=== PATIENT | male | born 1975 | race Caucasian/White ===

== ENCOUNTER 2019-06-02 16:28 | Emergency (ER) | payer OTHER ==
[2019-06-02 16:38] VITALS: BP 130/93; PULSE 92; RESP 18; TEMP 97.7
[2019-06-02] MEDS ORDERED: DIPH,PERTUS(ACELL)TETVAC-LF 0.5 ML VIAL IM ONE (16:39)
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
== END 2019-06-02 17:45 | disposition home or self-care (01) ==
LOC: EC 16:28
DX: S10.91XA Abrasion of unspecified part of neck, initial encounter (principal); S40.822A Blister (nonthermal) of left upper arm, initial encounter; Q27.31 Arteriovenous malformation of vessel of upper limb; E07.9 Disorder of thyroid, unspecified; G40.909 Epilepsy, unspecified, not intractable, without status epilepticus; F17.200 Nicotine dependence, unspecified, uncomplicated; Z23 Encounter for immunization; Z98.890 Other specified postprocedural states; Z79.890 Hormone replacement therapy; Z79.899 Other long term (current) drug therapy; Z88.6 Allergy status to analgesic agent; Y04.0XXA Assault by unarmed brawl or fight, initial encounter; Y92.89 Other specified places as the place of occurrence of the external cause
CPT/HCPCS: 90471; 90715; 99284

== ENCOUNTER 2021-01-26 17:47 | Emergency (ER) | payer OTHER ==
--- NOTE | 2021-01-26 20:21 | ED ---
Upper Extremity HPI - General Chief Complaint: Extremity Injury, Upper Stated Complaint: hand swelling Time Seen by Provider: 01/26/21 18:33 Source: patient, family Mode of arrival: ambulatory Limitations: no limitations - History of Present Illness Initial Comments: 45yo male with history of congenital left arm cavernous hemangioma, developmental delays with no documented nor stated specific disorder presenting for cc of left arm increased swelling. Patient and patient skin care technician (who is new with limited health information) states every time patient put his hand down it swells, they state this normally happens but seems increased from baseline.. Patient denies pain he denies warmth redness fever chills general malaise. They deny any other associated symptoms. Htey state when the arm is raised the swelling goes down. Patient was seen at two other facilities one placed patient on eliquis, and the other recommends NSAIDS and compression. Patient has an appointment at [facility] within the next two months with a plastics team for this complaint. Remaining ROS (-). - Related Data Home Medications Medication Instructions Recorded Confirmed ALPRAZolam [Xanax] 1 mg PO Q8HR PRN 10/17/16 10/19/16 FLUoxetine HCL [PROzac] 20 mg PO DAILY 10/17/16 10/19/16 Levothyroxine Sodium [Synthroid] 50 mcg PO DAILY 10/17/16 10/19/16 [place] Carbonate ER [Lithobid] 450 mg PO HS 10/17/16 10/19/16 OLANZapine [ZyPREXA Zydis] 30 mg PO HS 10/17/16 10/19/16 hydrOXYzine pamoate [Vistaril] 50 mg PO TID 10/17/16 10/19/16 lamoTRIgine [LaMICtal] 100 mg PO QAM 10/17/16 10/19/16 lamoTRIgine [LaMICtal] 300 mg PO HS 10/17/16 10/19/16 levETIRAcetam [Keppra] 500 mg PO Q12HR 10/17/16 10/19/16 Allergies Allergy/AdvReac Type Severity Reaction Status Date / Time aspirin Allergy Unknown Verified 01/26/21 17:54 NSAIDS (Non-Steroidal Allergy Unknown Verified 06/02/19 16:38 Anti-Inflamma Review of Systems ROS Statement: Those systems with pertinent positive or pertinent negative responses have been documented in the HPI. ROS Other: All systems not noted in ROS Statement are negative. 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;Complex seizure disorder with tremors; poor upper body muscle tone;emphysema History of Any Multi-Drug Resistant Organisms: None Reported Additional Past Surgical History / Comment(s): Colonoscopy; teeth extraction Past Anesthesia/Blood Transfusion Reactions: No Reported Reaction Smoking Status: Current every day smoker Past Alcohol Use History: None Reported Past Drug Use History: None Reported - Past Family History Mother Family Medical History: Unable to Obtain General Exam - General Exam Comments Initial Comments: General: The patient is awake and alert, in no distress Eye: +3 mm pupils are equal, round and reactive to light, extra-ocular movements are intact. No nystagmus. There is normal conjunctiva bilaterally. No signs of icterus. Ears, nose, mouth and throat: There are moist mucous membranes and no oral lesions. Neck: The neck is supple, there is no tenderness or JVD. Cardiovascular: There is a regular rate and rhythm. No murmur, rub or gallop is appreciated. Respiratory: Lungs are clear to auscultation, respirations are non-labored, breath sounds are equal. No wheezes, stridor, rales, or rhonchi. Gastrointestinal: Soft, non-distended, non-tender abdomen without masses or organomegaly noted. There is no rebound or guarding present. No CVA tenderness. Musculoskeletal: Normal ROM, no tenderness. Strength 5/5. Sensation intact. Radial and DP pulses equal bilaterally 2+. Neurological: A&O x 3. CN II-XII intact grossly,Coordination appears grossly intact. Speech is normal. Skin: Skin is warm and dry and no rashes or lesions are noted. dilated large veins on the left arm, large overall enlarged (appear typical of cavernous hemangioma). No redness, does not appear severely edematous, skin soft, normal pulses. Psychiatric: Cooperative, pleasant Limitations: no limitations Course Vital Signs 01/26/21 01/27/21 17:48 00:39 Temperature 98.4 F 98.1 F Pulse Rate 80 82 Respiratory 18 16 Rate Blood Pressure 133/83 136/78 O2 Sat by Pulse 97 98 Oximetry Medical Decision Making - Medical Decision Making 45yo male presenting for cc of hand swelling. hx cavernous hemangioma. Patient exam correlated with PMH. dependent swelling. sttates improved at this time because he has been elevating it. Denies pain. States only red when hand down, no redness at this time. Consulted Dr. jordan who states he is not familar with the disease. COnsulted Jennifer Whitley who states it sounds benign but to contact plastics at [facility]. I consulted trial consultant plastics team at [facility]. He states he will attempt to move up appointment and thinks overall given hx and PE that this appears benign. recommend outpatient f/u. patient case discussed with Dr. Hernandez who evaluated patient and is in agreement with trial consultant and pt discharged appearing well. Disposition Clinical Impression: Left arm swelling, Venous insufficiency Disposition: HOME SELF-CARE Condition: Good Additional Instructions: Please use medication as discussed. Please follow-up with family doctor in the next 2 days, [facility] will call you to move up plastics appointment, Return for pain, redness, warmth, fevers, chest pain, shortness of breath. Please return to emergency room if the symptoms increase or worsen or for any other concerns. Is patient prescribed a controlled substance at d/c from ED?: No Referrals: Nonstaff,Physician [Primary Care Provider] - 1-2 days Time of Disposition: 20:20
[2021-01-27 00:40] VITALS: BP 136/78; PULSE 82; RESP 16; TEMP 98.1
== END 2021-01-26 20:45 | disposition home or self-care (01) ==
LOC: EEVIPCON 17:47 → EC 17:47
DX: I87.2 Venous insufficiency (chronic) (peripheral) (principal); F17.200 Nicotine dependence, unspecified, uncomplicated; J43.9 Emphysema, unspecified; Z79.01 Long term (current) use of anticoagulants; Z79.899 Other long term (current) drug therapy
CPT/HCPCS: 99283

== ENCOUNTER 2021-05-18 07:36 | Day surgery (SDC) | payer OTHER ==
[2021-05-18 07:34] VITALS: RESP 16; TEMP 98.4
[2021-05-18] MEDS ORDERED: IV FLUID CONTINUATION 1,000 ML IV ONE (07:44)
[2021-05-18] MEDS ORDERED: LACTATED RINGERS 1,000 ML IV ONE (07:44)
[2021-05-18] MEDS ORDERED: fentaNYL (PF) 50 MCG/ML 2 ML AMP ONE (08:17)
[2021-05-18] MEDS ORDERED: LIDOCAINE 1% INJ 10MG/ML (20 ML MDV) ONE (08:17)
[2021-05-18] MEDS ORDERED: GLYCOPYRROLATE 0.2 MG/ML 2 ML VIAL ONE (08:17)
[2021-05-18] MEDS ORDERED: PROPOFOL 10 MG/ML 20 ML VIAL IV ONE (08:17)
[2021-05-18] MEDS ORDERED: MIDAZOLAM 2 MG/2 ML VIAL ONE (08:17)
--- NOTE | 2021-05-18 08:58 | P.PCN ---
Date of Procedure: 05/18/21 Description of Procedure: BRIEF HISTORY: Patient is a 46-year-old male presenting for rectal bleed and hemorrhoids were outpatient colonoscopy. Previously he had colonoscopy in 10/05 with findings of distal rectal polyp, internal hemorrhoids and a redundant colon with poor prep. PROCEDURE PERFORMED: Colonoscopy with polypectomy. PREOPERATIVE DIAGNOSIS: Rectal bleed, hemorrhoids, last colonoscopy 2015. ESTIMATED BLOOD LOSS: Minimal. IV sedation per Anesthesia. PROCEDURE: After informed consent was obtained, the patient, was brought into the endoscopy unit. IV sedation was administered by Anesthesia under continuous monitoring. Digital rectal examination was normal. Initially the Olympus CF-190 flexible video colonoscope was then inserted in the rectum, gradually advanced into the cecum without any difficulty. Careful examination was performed as the scope was gradually being withdrawn. Ileocecal valve and the appendiceal orifice were visualized and appeared normal. Prep was excellent. Mucosa of the cecum, ascending colon, transverse colon, descending colon, sigmoid colon, and rectum appeared normal, but was somewhat redundant. A diminutive 2 mm transverse colon polyp was removed with cold forcep polypectomy.. Retroflexion was performed in the rectum and no lesions were seen, and low-grade internal hemorrhoids were noted. The patient tolerated the procedure well. IMPRESSION: Diminutive transverse colon polyp removed with cold forcep polypectomy. Internal hemorrhoids. Redundant colon. RECOMMENDATIONS: Findings of this examination were discussed with the patient and his caregiver. Okay to resume diet. Okay to resume medications. Await pathology from polypectomy. Recommend repeat colonoscopy in 7 years pending pathology from polypectomy. Continue local hemorrhoidal care.
[2021-05-18 09:09] VITALS: BP 138/85; PULSE 88
== END 2021-05-18 09:51 ==
LOC: ORWHC2ENDO 07:36
PROVIDERS: ATTEND Internal Medicine
DX: K62.5 Hemorrhage of anus and rectum (principal); K64.8 Other hemorrhoids; D12.3 Benign neoplasm of transverse colon; J44.9 Chronic obstructive pulmonary disease, unspecified; F31.9 Bipolar disorder, unspecified; F20.9 Schizophrenia, unspecified; F41.9 Anxiety disorder, unspecified; R62.50 Unspecified lack of expected normal physiological development in childhood; Z88.6 Allergy status to analgesic agent; E07.9 Disorder of thyroid, unspecified; Z79.899 Other long term (current) drug therapy
CPT/HCPCS: 88305; 45380; J2250; J2001; J3010; J2704

== ENCOUNTER 2023-10-20 08:09 | Day surgery (SDC) | payer OTHER ==
--- NOTE | 2023-10-20 05:27 | P.GSHP ---
History of Present Illness H&P Date: 10/20/23 CHIEF COMPLAINT: Cholecystitis HISTORY OF PRESENT ILLNESS: The patient is a 48-year-old male who presents with history of epigastric including right upper quadrant abdominal pain. He underwent diagnostic studies for the gallbladder and gallstones. Separately his clinical picture was consistent with cholecystitis. Now he presents for surgical intervention. PAST MEDICAL HISTORY: Please see list PAST SURGICAL HISTORY: Please see list MEDICATIONS: Please see list ALLERGIES: Denies. SOCIAL HISTORY: No illicit drug use or recent tobacco use FAMILY HISTORY: Pertinent for gallbladder disease REVIEW OF ORGAN SYSTEMS: CONSTITUTIONAL: No reports of fevers or chills. HEENT: Denies any troubles with the vision or hearing. ENDOCRINE: No reports of hypothyroidism. No diabetes. RESPIRATORY: No recent pneumonias. CARDIOVASCULAR: Denies chest pain or palpitations. History of cardiac disease GI: No blood in stools or constipation. MUSCULOSKELETAL: Has occasional joint pain including back pain. NEURO: No seizure disorders or headaches. No recent stroke. PSYCH: No depression or suicidal ideation. Has cognitive delay HEMATOLOGIC: Past DVTs or pulmonary emboli. PHYSICAL EXAM: VITAL SIGNS: Afebrile vital signs stable GENERAL: Well-developed pleasant male in no acute distress. HEENT: No scleral icterus. Extraocular movements grossly intact. Moist buccal mucosa. NECK: Supple without lymphadenopathy. CHEST: Unlabored respirations. Equal bilateral excursions. CARDIOVASCULAR: Regular rate regular rhythm rhythm. Distal 2+ pulses. ABDOMEN: Soft, nondistended. MUSCULOSKELETAL: No clubbing, cyanosis, or edema. NEURO : No focal or lateralizing signs. Cranial nerves II-12 within normal limits. PSYCH: Alert and oriented to person, place and time. SKIN: Well perfused. Good skin turgor. ASSESSMENT: 1. Epigastric and right upper quadrant abdominal pain 2. Chronic cholecystitis PLAN: 1. Will need a robotic cholecystectomy possible open. Benefits and risks were described. 2. Heparin for DVT prophylaxis 5000 units. 3. Antibiotic prophylaxis. Past Medical History Past Medical History: Asthma, GI Bleed, Thyroid Disorder Additional Past Medical History / Comment(s): Mentally Challenged; Large cavernous hemangioma from neck, left shoulder, chest and arm.; seizure disorder (unknown date of last seizure), hx of cavernous hemangioma growth in bowel that was not removable, (2005), 2nd growth (2016)., scratches himself., rectal bleeding. caregiver states speech not clear but able to understand him, speaks in sentences, cooperative, ambulates and cares for himself. , pt has legal guardian from the court -Estefania Schaefer # [phone]. History of Any Multi-Drug Resistant Organisms: None Reported Additional Past Surgical History / Comment(s): Colonoscopy; teeth extraction, ? surgery for hemangiomas in abdomen, Past Anesthesia/Blood Transfusion Reactions: Unable to Obtain Smoking Status: Current every day smoker - Past Family History Mother Family Medical History: Unable to Obtain Medications and Allergies Home Medications Medication Instructions Recorded Confirmed Type Benzonatate [Tessalon Perles] 100 mg PO TID PRN 02/23/22 10/18/23 History Acetaminophen-Codeine 300-30mg 1 tab PO BID PRN #6 tab 03/03/22 10/18/23 Rx [Tylenol w/codeine #3] Albuterol Nebulized [Ventolin 2.5 mg INHALATION RT-Q4H PRN 30 03/03/22 10/18/23 Rx Nebulized] Days #90 each Albuterol Sulfate [Proair Hfa] 2 puff INHALATION RT-Q6H PRN 30 03/03/22 10/18/23 Rx Days #1 each Cyanocobalamin [Vitamin B-12] 500 mcg PO DAILY #30 tab 03/03/22 10/18/23 Rx FLUoxetine HCL [PROzac] 10 mg PO DAILY@0700 #30 cap 03/03/22 10/18/23 Rx Fenofibrate Nanocrystallized 145 mg PO DAILY@0700 #30 tab 03/03/22 10/18/23 Rx [Fenofibrate] Folic Acid 1 mg PO DAILY #30 tab 03/03/22 10/18/23 Rx LORazepam [Ativan] 1 mg PO BID PRN #4 tab 03/03/22 10/18/23 Rx Levothyroxine Sodium [Synthroid] 50 mcg PO DAILY@0700 #30 tab 03/03/22 10/18/23 Rx OLANZapine ODT [ZyPREXA Zydis] 20 mg PO HS@2100 #60 tab 03/03/22 10/18/23 Rx Tamsulosin [Flomax] 0.4 mg PO PC-BRKFST 30 Days #30 cap 03/03/22 10/18/23 Rx Thiamine [Vitamin B-1] 100 mg PO DAILY #30 tab 03/03/22 10/18/23 Rx hydrOXYzine HCL [Atarax] 50 mg PO TID PRN 30 Days #90 tab 03/03/22 10/18/23 Rx lamoTRIgine [LaMICtal] 75 mg PO HS@2100 30 Days #90 tab 03/03/22 10/18/23 Rx lamoTRIgine [LaMICtal] 100 mg PO DAILY@0700 #30 tab 03/03/22 10/18/23 Rx lamoTRIgine [LaMICtal] 200 mg PO HS@2100 30 Days #60 tab 03/03/22 10/18/23 Rx levETIRAcetam [Keppra] 500 mg PO BID@0700,2100 #60 tab 03/03/22 10/18/23 Rx traZODone HCL [Desyrel] 50 mg PO HS PRN #5 tab 03/03/22 10/18/23 Rx Cetirizine HCl 10 mg PO DAILY 10/18/23 10/18/23 History Polygycol(Unk) 1 dose PO DIRECTED 10/18/23 10/18/23 History Allergies Allergy/AdvReac Type Severity Reaction Status Date / Time aspirin Allergy Unknown Verified 10/18/23 08:59
[~2023-10-20 08:09] MED LIST: ACETAMINOPHEN TAB 500 MG TAB PO PRN; DEXAMETHASONE SOD PHOSPHATE 4 MG/ML 1 ML VIAL IV ONE; HEPARIN SODIUM,PORCINE/PF 5,000 UNIT/0.5 ML SYRINGE SQ PRN; HYDROmorphone 0.5 MG/0.5 ML SYRINGE IVP PRN; INDOCYANINE GREEN 25 MG VIAL IV STA; LACTATED RINGERS 1,000 ML IV SCH; LIDOCAINE 1% (10MG/ML) FOR IV START INTRADERMA PRN; MIDAZOLAM 2 MG/2 ML VIAL IV PRN; ONDANSETRON 4 MG/2 ML VIAL IVP ONE; ONDANSETRON 4 MG/2 ML VIAL IVP PRN
[2023-10-20 09:01] LABS: Basophils # (A) 0.1 k/uL (0-0.2); Basophils % (A) 1 %; Eosinophils # (A) 0.5 k/uL (0-0.7); Eosinophils % (A) 6 %; HCT 43.1 % (39.0-53.0); HGB 14.3 gm/dL (13.0-17.5); Lymphocytes # (A) 2.4 k/uL (1.0-4.8); Lymphocytes % (A) 29 %; MCH 32.7 pg (25.0-35.0); MCHC 33.2 g/dL (31.0-37.0); MCV 98.6 fL (80.0-100.0); Mean Platelet Volume 6.8; Monocytes # (A) 0.5 k/uL (0-1.0); Monocytes % (A) 6 %; Neutrophils # (A) 4.7 k/uL (1.3-7.7); Neutrophils % (A) 56 %; Platelet Count 309 k/uL (150-450); RBC 4.37 m/uL (4.30-5.90); RDW 13.7 % (11.5-15.5); WBC 8.4 k/uL (3.8-10.6)
[2023-10-20] MEDS ORDERED: GLYCOPYRROLATE 0.2 MG/ML 2 ML VIAL ONE (09:08)
[2023-10-20] MEDS ORDERED: fentaNYL (PF) 50 MCG/ML 2 ML AMP ONE (09:08)
[2023-10-20] MEDS ORDERED: PROPOFOL 10 MG/ML 20 ML VIAL IV ONE (09:08)
[2023-10-20] MEDS ORDERED: PHENYLEPHRINE-0.9% NACL SYG 1,000 MCG/10 ML SYRINGE ONE (09:08)
[2023-10-20] MEDS ORDERED: SUGAMMADEX SODIUM 200 MG/2 ML SDV IV ONE (09:08)
[2023-10-20] MEDS ORDERED: ROCURONIUM 10 MG/ML (5 ML VIAL) IV ONE (09:08)
[2023-10-20] MEDS ORDERED: SUCCINYLCHOLINE CHLORIDE 200 MG/10 ML VIAL IV ONE (09:08)
[2023-10-20] MEDS ORDERED: LIDOCAINE 1% INJ 10MG/ML (20 ML MDV) ONE (09:08)
[2023-10-20] MEDS ORDERED: MIDAZOLAM 2 MG/2 ML VIAL ONE (09:08)
[2023-10-20] MEDS ORDERED: LACTATED RINGERS 1,000 ML IV ONE (09:15)
[2023-10-20] MEDS ORDERED: SODIUM CHLORIDE 0.9% 100 ML with ceFAZolin 2,000 MG IV ONE ×2 (09:15)
[2023-10-20 09:29] LABS: INR 1.3 (<1.2); Prothrombin Time 13.3 sec (10.0-12.5)
[2023-10-20] MEDS ORDERED: LIDOCAINE 2%-EPI 1:100,000 20 ML VIAL SQ ONE ×2 (09:35→09:40)
[2023-10-20 09:49] LABS: ALT 19 U/L (4-49); African American GFR (CKD) >90 (>60 ml/min/1.73 sqM); Anion Gap 17 mmol/L; Blood Urea Nitrogen 14 mg/dL (9-20); Carbon Dioxide 21 mmol/L (22-30); Chloride 105 mmol/L (98-107); Glucose 83 mg/dL (74-99); Non-African American GFR(CKD) 82 (>60 ml/min/1.73 sqM); Sodium 143 mmol/L (137-145); Total Bilirubin 0.8 mg/dL (0.2-1.3)
[2023-10-20 09:51] LABS: Albumin 4.7 g/dL (3.5-5.0); Potassium 5.1 mmol/L (3.5-5.1)
[2023-10-20 09:52] LABS: AST 34 U/L (17-59); Alkaline Phosphatase 45 U/L (38-126); Total Protein 7.5 g/dL (6.3-8.2)
--- NOTE | 2023-10-20 10:20 | P.OP ---
Date of Procedure: 10/20/23 Description of Procedure: SURGEON: ESEQUIEL ZIMMERMAN MD PREOPERATIVE DIAGNOSES: 1. Symptomatic gallstone 2. Right upper quadrant abdominal pain POSTOPERATIVE DIAGNOSES: 1. Symptomatic gallstone 2. Right upper quadrant abdominal pain 3. Chronic cholecystitis 4. Peritoneal adhesions, right upper quadrant OPERATION: Robotic-assisted da Noel Xi laparoscopic cholecystectomy, multiport with FIREFLY ESTIMATED BLOOD LOSS: 10 mL. SPECIMENS REMOVED: Gallbladder. COMPLICATIONS: None. OPERATIVE FINDINGS: 1. Scarring over gallbladder with peritoneal adhesions, pericholecystic with features of chronic cholecystitis 2. Dome down technigue INDICATIONS: The patient is a 48-year-old male who presents with symptomatic gallstones. Robotic assisted laparoscopic approach was described. Benefits and risks of the procedure including but not limited to bleeding, infection, injury to the biliary tree was described. Informed consent was obtained. DESCRIPTION OF PROCEDURE: Patient was brought to the operating room, placed in supine position. After general induction, the abdomen had been prepped and draped in standard sterile fashion. The robotic da Noel XI system was primed. After a timeout protocol was performed, the patient had been prepped and draped in standard sterile fashion. The patient was injected with indocyanine green. A 5 mm 0 degrees laparoscopic trocar entry was performed along the left upper quadrant. The abdomen insufflated to 15 mmHg pressure which was tolerated well. Diagnostic laparoscopy demonstrated no injury to bowel viscera or mesentery. The liver surface was unremarkable. Next, two 8 mm robotic ports were placed along the right upper abdomen. The camera 8-mm port was maintained along the epigastrium. Another 8 mm port was placed along the left upper abdominal wall after exchanging the 5 mm port. Please note that the ports were placed at least 10 to 15 cm away from the target anatomy of the gallbladder. The robot was docked along the left lateral abdomen. The patient was repositioned in reverse Trendelenburg position. Using a grasper for arm 3, a grasper for arm 4, including hook cautery for arm 1, the robotic system was docked and primed as described. Instruments were interchanged by the casting assistant including hook cautery, Bovie cautery and clip appliers. I had sat at the console. The gallbladder was scarred with peritoneal adhesions. Lysis of adhesions was performed to free the gallbladder from the surrounding tissues. Next attention was brought to the infundibulum and cystic structures. The infundibulum and cystic duct were dissected free from surrounding tissues. The cystic duct was isolated. FIREFLY was used to identify the cystic artery and cystic structures. A critical view of safety was obtained. Large PLASTIC clips were used throughout the entire case. Using a clip caul puller, 2 clips were placed at the junction of the infundibulum and cystic duct. The cystic duct was divided between clips. Next, the cystic artery was similarly clipped and cauterized. Electro-Bovie cautery was used to remove the gallbladder from the hepatic fossa. Hemostasis was checked and found to be adequate. The robot was undocked. I re-scrubbed into the case. Using a 10 mm Endo Catch bag via the left upper quadrant incision, the specimen was removed from the abdominal cavity. All pneumoperitoneum instruments were evacuated from the abdominal cavity. The incisions were reapproximated using 4-0 Monocryl in an interrupted subcuticular fashion. Fascial defects were less than 8 mm in size. Please note along the trocar sites, local anesthetic was placed as a field block prior to insertion of all instruments. Liquid glue was applied to the skin. At the end of the procedure needle, sponge, and instrument count had been verified correct by the assembler surgical garment. The patient was transferred to postanesthesia care unit in stable condition. Intraoperative films were shared with the patient's family. Plan - Discharge Summary New Discharge Prescriptions: No Action Benzonatate [Tessalon Perles] 100 mg PO TID PRN PRN Reason: Cough traZODone HCL [Desyrel] 50 mg PO HS PRN #5 tab PRN Reason: Insomnia Thiamine [Vitamin B-1] 100 mg PO DAILY #30 tab Cyanocobalamin [Vitamin B-12] 500 mcg PO DAILY #30 tab levETIRAcetam [Keppra] 500 mg PO BID@0700,2100 #60 tab Levothyroxine Sodium [Synthroid] 50 mcg PO DAILY@0700 #30 tab Albuterol Nebulized [Ventolin Nebulized] 2.5 mg INHALATION RT-Q4H PRN 30 Days #90 each PRN Reason: Shortness Of Breath Or Wheezing Albuterol Sulfate [Proair Hfa] 2 puff INHALATION RT-Q6H PRN 30 Days #1 each PRN Reason: Shortness Of Breath LORazepam [Ativan] 1 mg PO BID PRN #4 tab PRN Reason: Anxiety Tamsulosin [Flomax] 0.4 mg PO PC-BRKFST 30 Days #30 cap Folic Acid 1 mg PO DAILY #30 tab lamoTRIgine [LaMICtal] 100 mg PO DAILY@0700 #30 tab lamoTRIgine [LaMICtal] 75 mg PO HS@2100 30 Days #90 tab lamoTRIgine [LaMICtal] 200 mg PO HS@2100 30 Days #60 tab OLANZapine ODT [ZyPREXA Zydis] 20 mg PO HS@2100 #60 tab hydrOXYzine HCL [Atarax] 50 mg PO TID PRN 30 Days #90 tab PRN Reason: Anxiety Fenofibrate Nanocrystallized [Fenofibrate] 145 mg PO DAILY@0700 #30 tab FLUoxetine HCL [PROzac] 10 mg PO DAILY@0700 #30 cap Polygycol(Unk) 1 dose PO DIRECTED Cetirizine HCl 10 mg PO DAILY Discharge Medication List Benzonatate [Tessalon Perles] 100 mg PO TID PRN 02/23/22 [History] Albuterol Nebulized [Ventolin Nebulized] 2.5 mg INHALATION RT-Q4H PRN 30 Days #90 each 03/03/22 [Rx] Albuterol Sulfate [Proair Hfa] 2 puff INHALATION RT-Q6H PRN 30 Days #1 each 03/03/22 [Rx] Cyanocobalamin [Vitamin B-12] 500 mcg PO DAILY #30 tab 03/03/22 [Rx] FLUoxetine HCL [PROzac] 10 mg PO DAILY@0700 #30 cap 03/03/22 [Rx] Fenofibrate Nanocrystallized [Fenofibrate] 145 mg PO DAILY@0700 #30 tab 03/03/22 [Rx] Folic Acid 1 mg PO DAILY #30 tab 03/03/22 [Rx] LORazepam [Ativan] 1 mg PO BID PRN #4 tab 03/03/22 [Rx] Levothyroxine Sodium [Synthroid] 50 mcg PO DAILY@0700 #30 tab 03/03/22 [Rx] OLANZapine ODT [ZyPREXA Zydis] 20 mg PO HS@2100 #60 tab 03/03/22 [Rx] Tamsulosin [Flomax] 0.4 mg PO PC-BRKFST 30 Days #30 cap 03/03/22 [Rx] Thiamine [Vitamin B-1] 100 mg PO DAILY #30 tab 03/03/22 [Rx] hydrOXYzine HCL [Atarax] 50 mg PO TID PRN 30 Days #90 tab 03/03/22 [Rx] lamoTRIgine [LaMICtal] 75 mg PO HS@2100 30 Days #90 tab 03/03/22 [Rx] lamoTRIgine [LaMICtal] 100 mg PO DAILY@0700 #30 tab 03/03/22 [Rx] lamoTRIgine [LaMICtal] 200 mg PO HS@2100 30 Days #60 tab 03/03/22 [Rx] levETIRAcetam [Keppra] 500 mg PO BID@0700,2100 #60 tab 03/03/22 [Rx] traZODone HCL [Desyrel] 50 mg PO HS PRN #5 tab 03/03/22 [Rx] Cetirizine HCl 10 mg PO DAILY 10/18/23 [History] Polygycol(Unk) 1 dose PO DIRECTED 10/18/23 [History]
[2023-10-20 10:50] VITALS: RESP 16; TEMP 96.8
[2023-10-20 12:13] VITALS: BP 118/82; PULSE 84
== END 2023-10-20 12:40 | disposition home or self-care (01) ==
LOC: OR 08:09
PROVIDERS: ATTEND Surgery Plastic and Reconstructive Surgery
DX: K80.10 Calculus of gallbladder with chronic cholecystitis without obstruction (principal); K66.0 Peritoneal adhesions (postprocedural) (postinfection); E03.9 Hypothyroidism, unspecified; F17.210 Nicotine dependence, cigarettes, uncomplicated; F41.9 Anxiety disorder, unspecified; K21.9 Gastro-esophageal reflux disease without esophagitis; J45.909 Unspecified asthma, uncomplicated; K92.2 Gastrointestinal hemorrhage, unspecified; D18.00 Hemangioma unspecified site; G40.909 Epilepsy, unspecified, not intractable, without status epilepticus; Z79.51 Long term (current) use of inhaled steroids; Z79.890 Hormone replacement therapy; Z79.899 Other long term (current) drug therapy; Z98.890 Other specified postprocedural states; Z88.6 Allergy status to analgesic agent; Z83.79 Family history of other diseases of the digestive system
CPT/HCPCS: 47562; S2900; 80053; 85025; 85610; 88304